=== PATIENT | female | born 1955 | race Caucasian/White ===

== ENCOUNTER 2019-04-28 12:52 | Emergency (ER) | payer SELFPAY ==
[~2019-04-28 12:52] MED LIST: Atropine Sulfate 1 mg/10 ml Syringe ONE; EPINEPHrine 1 MG/10 ML Abboject SYRINGE ONE; Sodium Bicarb 50 MEQ/50 ML Abboject 8.4% SYRINGE ONE
[2019-04-28 13:29] LABS: Hemoglobin 11.7 g/dL (12.0-16.0); Mean Corpuscular Hemoglobin 31.7 pg (27.0-31.0); Mean Corpuscular Volume 95.9 fL (78.0-98.0); Mean Platelet Volume 8.3 fL (7.4-10.4); Platelet Count 146 thou/uL (130-400); RBC Distribution Width 12.3 % (11.5-14.5)
[2019-04-28 13:52] LABS: Band 12 % (5-11); Lymphocytes 19 % (21-51); MDiff Complete? YES; Metamyelocyte 2 % (0-0); Monocytes 5 % (0-10); Neutrophil 13 % (42-75); Platelet Morphology Comment Appears Adequate; Polychromasia SLIGHT = 2-3 cells (100X) (0-2/hpf); Reactive Lymphocytes 49 % (0-10); Reflex for Review?? YES
[2019-04-28 14:01] LABS: ALT (SGPT) 482 U/L (8-55); AST (SGOT) 432 U/L (5-34); Acetaminophen Less than 6.0 mcg/mL (10.0-30.0); Albumin 3.5 g/dL (3.4-4.8); Alcohol Less than 10 mg/dL (Less than 10); Alkaline Phosphatase 116 U/L (40-110); Anion Gap 28 mmol/L (10-20); BUN (Urea Nitrogen) 17 mg/dL (9.8-20.1); Bilirubin, Total 0.3 mg/dL (0.2-1.2); Calc. Creatinine Clearance 0 mL/min (70-130); Carbon Dioxide 22 mmol/L (23-31); Chloride 96 mmol/L (98-107); Estimated GFR-MDRD 37; Globulin 2.5 g/dL (2.4-3.5); Glucose 363 mg/dL (80-115); Salicylate Less than 8.0 mg/dL (15.0-30.0); Sodium 143 mmol/L (136-145)
[2019-04-28 14:05] LABS: Calcium 12.2 mg/dL (7.8-10.44)
[2019-04-28 14:13] LABS: CKMB 1.8 ng/mL (0-6.6)
== END 2019-04-28 13:42 | disposition expired ==
LOC: ERS 12:52 → EDBD 12:52 → ERS 13:42
DX: I46.9 Cardiac arrest, cause unspecified (principal)
CPT/HCPCS: 31500; 36416; 36556; 80053; 80307; 82553; 84443; 84484; 85025; 85060; 92950; 94760; 96374; J0171; J0461; J2997